=== PATIENT | female | born 1990 | race Caucasian/White ===

== ENCOUNTER 2018-12-02 06:45 | Day surgery (SDC) | payer OTHER ==
[~2018-12-02] VITALS: Ht 157.5 cm; Wt 59.0 kg
[2018-12-02] MEDS ORDERED: ceFAZolin 1,000 MG VIAL ONE ×2 (07:46→07:52)
[2018-12-02] MEDS ORDERED: BUPIVACAINE-MPF/EPI 0.5% 30 ML VIAL INJ ONE (07:46)
[2018-12-02] MEDS ORDERED: PROPOFOL 200 MG/20 ML VIAL IV ONE (07:54)
[2018-12-02] MEDS ORDERED: LIDOCAINE 2% 100 MG/5 ML SYR IVP ONE (07:54)
[2018-12-02] MEDS ORDERED: SUCCINYLCHOLINE CHLORIDE 200 MG/10 ML VIAL IVP ONE (07:54)
[2018-12-02] MEDS ORDERED: ONDANSETRON 4 MG/2 ML VIAL ONE (07:54)
[2018-12-02] MEDS ORDERED: DEXAMETHASONE 4 MG/ML VIAL ONE (07:54)
[2018-12-02] MEDS ORDERED: ROCURONIUM 50 MG/5 ML VIAL IV ONE (07:54)
[2018-12-02] MEDS ORDERED: KETOROLAC 30 MG/ML VIAL ONE (07:54)
[2018-12-02] MEDS ORDERED: DESFLURANE 240 ML BTL INH ONE (07:54)
[2018-12-02] MEDS ORDERED: MIDAZOLAM 2 MG/2 ML VIAL ONE (08:11)
[2018-12-02] MEDS ORDERED: fentaNYL 0.05 MG/ML VIAL ONE (08:11)
[2018-12-02] MEDS ORDERED: HYDROmorphone 1 MG/ML AMP IVP PRN ×2 (08:25→08:55)
[2018-12-02] MEDS ORDERED: ONDANSETRON 4 MG/2 ML VIAL IVP PRN (08:25)
[2018-12-02] MEDS ORDERED: ONDANSETRON 4 MG/2 ML VIAL IV PRN (08:55)
[2018-12-02] MEDS ORDERED: MORPHINE SULFATE 4 MG/ML SYR IV PRN (08:55)
[2018-12-02] MEDS ORDERED: ACETAMINOPHEN 325 MG TAB PO PRN (08:55)
[2018-12-02] MEDS ORDERED: MORPHINE SULFATE 2 MG/ML SYR IVP PRN (08:55)
[2018-12-02] MEDS ORDERED: HYDROcodone/APAP 5/325 MG 1 TAB TAB PO PRN (08:55)
== END 2018-12-02 10:20 | disposition home or self-care (01) ==
LOC: MOR 06:45 → MMU 06:45 → MOR 10:20
PROVIDERS: ATTEND Surgery
DX: K43.9 Ventral hernia without obstruction or gangrene (principal); K66.0 Peritoneal adhesions (postprocedural) (postinfection); Z83.3 Family history of diabetes mellitus
CPT/HCPCS: 49560; 71045; J0330; J0690; J1100; J1885; J2001; J2250; J2405; J2704; J3010; J3490; J7060; J7120; 88302